=== PATIENT | male | born 1985 | race African-American/Black ===

== ENCOUNTER 2017-05-19 17:39 | Emergency (ER) | payer OTHER ==
[~2017-05-19] VITALS: Ht 180.3 cm; Wt 81.7 kg
[2017-05-19 18:20] LABS: BASOPHILS 0.5 % (0.0-2.0); EOSINOPHILS 0.3 % (0.0-3.0); HEMATOCRIT 44.5 % (42.0-52.0); HEMOGLOBIN 14.9 gm/dL (14.0-18.0); LYMPHOCYTES 13.3 % (24.0-44.0); MCH 27.9 pg (26.0-34.0); MCHC 33.4 g/dL (28.0-37.0); MCV 83.6 fL (80.0-100.0); MONOCYTES 5.4 % (1.0-8.0); PLATELET COUNT 156 thou/uL (150-400); POLYS 80.5 % (36.0-66.0); RBC 5.32 mil/uL (4.50-6.00); RDW 14.6 % (10.5-14.5); WBC 14.8 thou/uL (4.0-11.0)
[2017-05-19 18:24] LABS: CALCIUM 9.3 mg/dL (8.5-10.1); CREATININE 1.4 mg/dL (0.7-1.3)
[2017-05-19 18:25] LABS: MANUAL DIFF NO
[2017-05-19 18:28] LABS: ALBUMIN 4.4 g/dL (3.4-5.0); TOTAL BILIRUBIN 0.7 mg/dL (<0.1-1.0); TOTAL PROTEIN 7.9 g/dL (6.4-8.2)
[2017-05-19] MEDS ORDERED: PRILOSEC 20 MG20 MG PO (20:53)
[2017-05-19] MEDS ORDERED: TRAMADOL 50 MG50 MG PO (20:53)
[2017-05-19] MEDS ORDERED: ZOFRAN ODT8 MG PO (20:53)
[2017-05-19 21:22] VITALS: BP 103/50
== END 2017-05-19 21:23 | disposition home or self-care (01) ==
LOC: ER 17:39
PROVIDERS: Emergency Medicine
DX: R11.2 Nausea with vomiting, unspecified (principal); R19.7 Diarrhea, unspecified; R10.10 Upper abdominal pain, unspecified; F10.99 Alcohol use, unspecified with unspecified alcohol-induced disorder

== ENCOUNTER 2017-09-06 15:34 | Emergency (ER) | payer OTHER ==
[~2017-09-06] VITALS: Ht 180.3 cm; Wt 81.7 kg
[~2017-09-06 15:34] MED LIST: PRILOSEC 20 MG20 MG PO; TRAMADOL 50 MG50 MG PO; ZOFRAN ODT8 MG PO
[2017-09-06 16:11] LABS: ABSOLUTE NEUTROPHILS 11.9 thou/uL (1.4-8.2); BASOPHILS 0.5 % (0.0-2.0); HEMATOCRIT 44.1 % (42.0-52.0); HEMOGLOBIN 14.9 gm/dL (14.0-18.0); MCH 27.8 pg (26.0-34.0); MCHC 33.7 g/dL (28.0-37.0); MCV 82.3 fL (80.0-100.0); MONOCYTES 3.6 % (1.0-8.0); PLATELET COUNT 175 thou/uL (150-400); POLYS 84.9 % (36.0-66.0); RBC 5.36 mil/uL (4.50-6.00); RDW 14.2 % (10.5-14.5); WBC 14.1 thou/uL (4.0-11.0)
[2017-09-06 16:12] LABS: MANUAL DIFF NO
[2017-09-06 16:17] LABS: CALCIUM 9.8 mg/dL (8.5-10.1); CREATININE 1.3 mg/dL (0.7-1.3); POTASSIUM 3.9 mmol/L (3.5-5.1)
[2017-09-06 16:22] LABS: ALBUMIN 4.5 g/dL (3.4-5.0); DIRECT BILIRUBIN 0.2 mg/dL (<0.1-0.3); TOTAL BILIRUBIN 0.8 mg/dL (<0.1-1.0); TOTAL PROTEIN 7.7 g/dL (6.4-8.2)
[2017-09-06] MEDS ORDERED: ZOFRAN ODT4 MG PO (21:17)
[2017-09-06 21:28] VITALS: BP 134/70
== END 2017-09-06 21:32 | disposition home or self-care (01) ==
LOC: ER 15:34
PROVIDERS: Emergency Medicine
DX: D72.829 Elevated white blood cell count, unspecified (principal); R10.84 Generalized abdominal pain; R11.2 Nausea with vomiting, unspecified; F10.99 Alcohol use, unspecified with unspecified alcohol-induced disorder